=== PATIENT | female | born 2000 | race Caucasian/White ===

== ENCOUNTER 2023-08-12 16:06 | Inpatient (IN) | payer BC, MEDICAID, SELFPAY ==
[2023-08-12] VITALS (8 sets, daily range): BP systolic 109–138; BP diastolic 22–87; PULSE 88–112; RESP 16; TEMP 36.7; BMI 30.4
[2023-08-12 16:28] LABS: Basophils % 0.2 %; Eosinophils % 0.3 %; Hematocrit 38.3 % (36-47); Lymphocytes # 2.2 10^3/uL (0.8-4.8); Lymphocytes % 15.5 %; Mean Corpuscular HGB Conc 35.2 g/dL (30-55); Mean Corpuscular Volume 87.8 fl (85-98); Mean Platelet Volume 9.4 fL (7.4-10.4); Monocytes % 6.8 %; Neutrophils # 11.01 10^3/uL (1.8-7.7); Neutrophils % 76.8 %; Nucleated Red Blood Cells % 0 %; Platelet Count 210 10^3/cmm (157-399); Red Blood Count 4.36 10^6/uL (3.85-5.65); Red Cell Distribution Width 12.8 % (12.1-15.1); White Blood Count 14.33 10^3/uL (3.29-11.43)
--- NOTE | 2023-08-12 17:35 | PM.OPHPUD ---
Labor & Delivery H&P Update Date of Procedure: August 12, 2023 Date H&P Performed: 08/11/23 Changes to previous documentation: Cervix was 6 cm dilated upon arrival to hospital. She was having consistent contractions 2 to 5 minutes apart. Admission Diagnosis: 22-year-old 2 para 1-0-0-1 at 40 weeks estimated gestational age presenting in active labor. Other information: The patient is a 40-week EGA female who presented to the hospital in active labor. She been having contractions during most the morning. She presented with her amniotic membranes intact. Her has been otherwise unremarkable. Her labs are as follows. Her blood type is O+. Her antibody screen is negative. She passed her 3-hour glucose screen. She is rubella immune. She is GBS negative. The remainder of her infectious disease profile is within normal limits. Related Problem List Diagnoses (1) 40 weeks gestation of : A&P Assessment and plan (1) 40 weeks gestation of : I anticipate routine labor and a vaginal delivery. Status: Acute
[2023-08-12] MEDS: oxytocin 30 UNIT/500 ML BAG 600 UNIT IV (18:22)
[2023-08-12] MEDS: lidocaine 2% INJ 20 mL INJECTION (18:22)
[2023-08-12] MEDS: dextrose 5%-lactated ringers 1,000 ML 125 ML IV (18:22)
--- NOTE | 2023-08-12 18:46 | P.PCNOB_ITS ---
Delivery Note: Date of delivery: August 12, 2023 Pre-delivery diagnoses: 22-year-old 2 para 1-0-0-1 at 40 weeks estimated gestational age presenting in active labor Post-delivery diagnoses: Status post spontaneous vaginal delivery Procedure: Spontaneous vaginal delivery Delivering Physician: Kareem Nichole Estimated blood loss (mL): 150 Pre-Delivery Course: The patient presented to the hospital in active labor. She was found to be 6 cm dilated with intact membranes. An amniotomy was performed. She then progressed to an anterior lip without difficulty. The cervix was stretchy and after manu ally retracting the cervix and pushing the cervix was gone after 2 contractions. Delivery: DELIVERY: The patient progressed to complete without difficulty. She delivered a female with a weight of 7 pounds 8 ounces with Apgars of 8, 9. The baby was delivered from the RYAN position and placed on the mother's abdomen. The mouth and nose were suctioned shortly thereafter. The cord was then clamped and cut 1 minute after delivery. There was no nuchal cord. There was no meconium. The placenta and 3 vessel cord were delivered intact shortly thereafter. The perineum and vaginal vault were carefully examined. A posterior second-degree midline tear was noted. It was repaired with 3-0 Vicryl in usual fashion.. Both the mother and the baby were in stable condition. Post-Delivery Status: Good A&P Assessment and plan (1) Spontaneous vaginal delivery: I anticipate routine care. Coding Level of Care Code Acute Code for Chg Fwd Diagnoses Spontaneous vaginal delivery O80
[2023-08-12] MEDS: benzocaine-menthol 78 gm Canister 1 SPRAY TOPICAL (21:00)
[2023-08-12] MEDS: lanolin oint 7 gm 1 APPLIC TOPICAL (22:12)
[2023-08-13 00:30] VITALS: BP 108/68; PULSE 94; RESP 16; TEMP 36.9
[2023-08-13 02:16] VITALS: BP 102/64; PULSE 90; RESP 16
[2023-08-13 04:14] VITALS: BP 114/62; PULSE 82; RESP 16
[2023-08-13 08:22] LABS: Hematocrit 35.9 % (36-47); Mean Corpuscular HGB Conc 35.1 g/dL (30-55); Mean Corpuscular Hemoglobin 31.4 pg (27-33); Mean Corpuscular Volume 89.5 fl (85-98); Mean Platelet Volume 9.1 fL (7.4-10.4); Platelet Count 192 10^3/cmm (157-399); Red Blood Count 4.01 10^6/uL (3.85-5.65); Red Cell Distribution Width 12.9 % (12.1-15.1); White Blood Count 14.73 10^3/uL (3.29-11.43)
[2023-08-13] MEDS: prenatal vitamin Capsule 1 CAP PO (09:31)
[2023-08-13] MEDS: acetaminophen 500 mg Tablet 1000 MG PO ×2 (09:31→17:24)
[2023-08-13] MEDS: docusate sodium 100 mg Capsule PO (09:31)
[2023-08-13 10:46] VITALS: BP 117/80; PULSE 93; RESP 17; TEMP 36.4
--- NOTE | 2023-08-13 13:43 | PM.OBGYDC ---
Discharge Providers OXYACETYLENE WELDER Date of Admission: 08/12/23 16:06 Date of Discharge: 08/13/23 Attending Provider at Admission: Kareem Nichole MD Attending Provider at Discharge: Kareem Nichole MD Diagnoses at Discharge Discharge Diagnosis (1) Spontaneous vaginal delivery: Status: Acute Reason for Visit Reason for Visit: Contractions Hospital Course Hospital Course The patient presented to the hospital in active labor. An amniotomy was performed. She progressed to complete and had an unremarkable delivery of a healthy female . She did have a second-degree posterior midline tear. Her course was unremarkable. She breast-fed well. Her bleeding was minimal. Her pain was well-controlled. There were no concerns. Information Peripartum Data: Infant Delivery Method: Vaginal Physical Exam Narrative: The patient is alert. She appears comfortable. Her heart has a regular rate and rhythm with no murmurs appreciated. Lungs are clear to auscultation bilaterally. Her fundus is firm and below the umbilicus. Discharge Data Studies Completed and Pending Laboratory Results WBC 14.73 10^3/uL (3.29-11.43) H 08/13/23 08:10 RBC 4.01 10^6/uL (3.85-5.65) 08/13/23 08:10 Hgb 12.60 g/dL (11.27-16.99) 08/13/23 08:10 Hct 35.9 % (36-47) L 08/13/23 08:10 MCV 89.5 fl (85-98) 08/13/23 08:10 MCH 31.4 pg (27-33) 08/13/23 08:10 MCHC 35.1 g/dL (30-55) 08/13/23 08:10 RDW 12.9 % (12.1-15.1) 08/13/23 08:10 Plt Count 192 10^3/cmm (157-399) 08/13/23 08:10 MPV 9.1 fL (7.4-10.4) 08/13/23 08:10 Neut % (Auto) 76.8 % 08/12/23 16:10 Lymph % (Auto) 15.5 % 08/12/23 16:10 [place] % (Auto) 6.8 % 08/12/23 16:10 Eos % (Auto) 0.3 % 08/12/23 16:10 Baso % (Auto) 0.2 % 08/12/23 16:10 Neut # (Auto) 11.01 10^3/uL (1.8-7.7) H 08/12/23 16:10 Lymph # (Auto) 2.2 10^3/uL (0.8-4.8) 08/12/23 16:10 [place] # (Auto) 1.0 10^3/uL (0.2-0.9) H 08/12/23 16:10 Eos # (Auto) 0.0 10^3/uL (0.0-0.8) 08/12/23 16:10 Baso # (Auto) 0.0 10^3/uL (0.0-0.1) 08/12/23 16:10 Nucleated RBC % (auto) 0 % 08/12/23 16:10 Nucleated RBCs # 0.0 /100WBC 08/12/23 16:10 Vitals Last Vital Signs Temp 97.5 F L 08/13/23 10:46 Pulse 93 08/13/23 10:46 Resp 17 08/13/23 10:46 BP 117/80 08/13/23 10:46 O2 Del Method Room Air 08/12/23 18:00 Results Labs OB ([facility]): Hct 35.9 % (36-47) L 08/13/23 Hgb 12.60 g/dL (11.27-16.99) 08/13/23 Plt Count 192 10^3/cmm (157-399) 08/13/23 Discharge Plan Discharge Patient Disposition: Home Condition: Stable Prescriptions: New -U 106.5-1 mg Capsule 1 cap PO DAILY Qty: 90 2RF Discharge Orders: Discharge Order (Routine); Ordered 08/13/23 Ordered By: Kareem Nichole Referrals: Kareem Nichole MD [Physician] - 3 weeks Discharge Diet: Usual diet Discharge Activity: Limit activity as instructed Patient Instructions: Depression (GEN), Bleeding (GEN), Preeclampsia and Eclampsia After Delivery (GEN), COVID-19 and (GEN), Hemorrhage (GEN), OB Discharge Report, OB Food/Drug Interaction Guide, Opioid Safety, OB [facility], OB Vaginal Deliveries, Abnormal Bleeding Discharge Attestations OXYACETYLENE WELDER Time Spent in Discharge Care*: less than 30 min Coding Level of Care Code Acute Code for Chg Fwd Diagnoses Spontaneous vaginal delivery O80
[2023-08-13 16:53] VITALS: BP 118/76; PULSE 91; RESP 16; TEMP 36.6
[2023-08-13 19:55] VITALS: BP 123/81; PULSE 86; RESP 16; TEMP 36.7; O2SAT 97
== END 2023-08-13 20:03 | disposition home or self-care (01) | DRG 807 ==
LOC: OPOB 08-13 05:42 → OBGYN 08-13 05:43
PROVIDERS: Admitting Provider Family Medicine; Visit Provider Family Medicine
DX: O70.1 Second degree perineal laceration during delivery (principal); Z37.0 Single live birth; Z3A.40 40 weeks gestation of pregnancy
CPT/HCPCS: 36415; 59025; 59409; 85025; 85027; 99211; J2590; J7121